=== PATIENT | male | born 1995 | race Two or more races ===

== ENCOUNTER 2020-04-02 19:28 | Emergency (ER) | payer OTHER ==
[~2020-04-02] VITALS: Ht 172.7 cm; Wt 113.4 kg
[2020-04-02 19:29] VITALS: BP 137/68
--- NOTE | 2020-04-02 19:52 | NUR ---
Patient discharged to [facility] in stable condition. Written and verbal after care instructions given. Patient verbalizes understanding of instruction. Pt medically cleared for booking
== END 2020-04-02 19:54 | disposition home or self-care (01) ==
LOC: ER 19:31
DX: Z02.89 Encounter for other administrative examinations (principal)